=== PATIENT | female | born 1985 | race Caucasian/White ===

== ENCOUNTER 2019-01-27 08:51 | Emergency (ER) | payer SELFPAY ==
[~2019-01-27] VITALS: Ht 165.1 cm; Wt 77.1 kg
[2019-01-27 08:59] VITALS: BP 105/74
--- NOTE | 2019-01-27 09:16 | NUR ---
PT BIB FAMILY C/O ABDOMINAL PAIN AND VAGINAL BLEEDING SINCE YESTERDAY. INTERMITENT CRAMPING PAIN THAT RADIATES ACROSS LOWER ABD AT 6/10. ABD IS SOFT, NON-TENDER, BOWEL SOUNDS ACTIVE X4 QUADRANTS, LAST BM 01/26/19, PT DENIES N/V/D OR FEVER. PT REPORTS THAT SHE IS NO LONGER USING PADS TO CONTROL BLEEDING BECAUSE THERE IS TOO MUCH BLOOD, AND STATES THAT SHE IS USING PAPER TOWELS. PT STATED " I THINK I AM MISCARRIAGED." LMP 01/16/19 TO 01/21/19. VSS. RAZ VILLEDA TO SEE PT. MEDHX:DENIES RX:DENIES
--- NOTE | 2019-01-27 09:26 | NUR ---
PT PROVIDED SANITARY WIPES AND MAXI PAD, PT PROVIDING URINE SAMPLE AT THIS TIME.
[2019-01-27] MEDS ORDERED: KETOROLAC 30 MG/ML VIAL IM ONE (10:00)
[2019-01-27 10:46] LABS: BASOPHILS # (AUTO) 0.1 K/uL (0.00-0.22); BASOPHILS % (AUTO) 0.9 % (0.0-2.0); EOSINOPHILS # (AUTO) 0.1 K/uL (0-0.4); EOSINOPHILS % (AUTO) 1.2 % (0.0-4.0); HEMATOCRIT 36.4 % (36-48); HEMOGLOBIN 12.1 g/dL (12.0-16.0); LYMPHOCYTES # (AUTO) 1.7 K/uL (2.5-16.5); LYMPHOCYTES % (AUTO) 23.8 % (20.5-51.1); MEAN CORPUSCULAR HEMOGLOBIN 30 pg (27-31); MEAN CORPUSCULAR HGB CONC 33 g/dL (33-37); MEAN CORPUSCULAR VOLUME 88.6 fL (80-94); MONOCYTES # (AUTO) 0.3 K/uL (0.8-1.0); MONOCYTES % (AUTO) 4.4 % (1.7-9.3); NEUTROPHILS # (AUTO) 5.1 K/uL (1.8-7.7); NEUTROPHILS % (AUTO) 69.7 % (42.2-75.2); PLATELET COUNT (AUTO) 297 K/uL (140-450); RED BLOOD CELL COUNT(AUTO) 4.11 MIL/uL (4.20-5.40); RED CELL DISTRIBUTION WIDTH 13.5 % (11.6-13.7); WHITE BLOOD COUNT (AUTO) 7.3 K/uL (4.8-10.8)
[2019-01-27 10:52] LABS: ANION GAP 12.1 (8-16); CARBON DIOXIDE 29.1 mmol/L (21-32); CREATININE 0.6 mg/dL (0.6-1.3); POTASSIUM 4.2 mmol/L (3.5-5.1)
[2019-01-27 10:57] LABS: ALBUMIN 3.3 g/dL (3.4-5.0); TOTAL BILIRUBIN 0.3 mg/dL (0.0-1.0)
--- NOTE | 2019-01-27 11:01 | NUR ---
US AT BEDSIDE
[2019-01-27 11:26] LABS: APPEARANCE,URINE CLEAR (CLEAR); BILIRUBIN,URINE NEGATIVE (NEGATIVE); BLOOD, URINE 3+ (NEGATIVE); COLOR,URINE YELLOW (YELLOW); LEUKOCYTE ESTERASE ,URINE TRACE (NEGATIVE); NITRITE, URINE POSITIVE (NEGATIVE); UGLUCOSE NEGATIVE (NEGATIVE)
[2019-01-27 11:34] LABS: RBC,URINE TOO NUMEROUS TO COUN /HPF (0-5)
[2019-01-27 11:49] VITALS: BP 112/87
--- NOTE | 2019-01-27 12:00 | NUR ---
PT RESTING IN BED, FAMILY AT BEDSIDE. PT STATES THAT SHE HAS NO PAIN AT THIS TIME. STILL REOPRTS VAGINAL BLEEDING. PT DENIES DIZZINESS, WEAKNESS, CP, OR SOB. VSS.
--- NOTE | 2019-01-27 13:21 | NUR ---
Note gay in ED - 01/27/19 at 1322 by SANCHEZ WENT TO DISCHARGE; PT NOT FOUND IN BED. PT LEFT WITHOUT DISCHARGE PAPERWORK. RAZ VILLEDA NOTIFIED.
--- NOTE | 2019-01-27 13:21 | NUR ---
WENT TO DISCHARGE; PT NOT FOUND IN BED. PT LEFT WITHOUT DISCHARGE PAPERWORK. ER MD NOTIFIED.
== END 2019-01-27 13:21 | disposition home or self-care (01) ==
LOC: MED 08:51
DX: N93.8 Other specified abnormal uterine and vaginal bleeding (principal); N39.0 Urinary tract infection, site not specified; Z90.49 Acquired absence of other specified parts of digestive tract
CPT/HCPCS: 36415; 76856; 80053; 81001; 81025; 84702; 85025; 86900; 86901; 87086; 87186; 93976; 96372; 99284; J1885; Q0092

== ENCOUNTER 2019-09-05 19:48 | Emergency (ER) | payer MEDICAID ==
[~2019-09-05] VITALS: Ht 165.1 cm; Wt 90.3 kg
[2019-09-05 19:53] VITALS: BP 124/89
--- NOTE | 2019-09-05 19:57 | NUR ---
PT AMBULATED TO BED #12
--- NOTE | 2019-09-05 20:22 | NUR ---
PT BIB SELF C/O TOOTHPAIN X 1 WEEK, PT REPORTS BITTING DOWN AND FALLING, LANDING ON HER HEAD AND CHIPPING TEETH. PT HAS 2 DAMAGED TEETH ON LT AND RT SIDE OF LOWER MOUTH. NO EDEMA OR REDNESS VISIBLE. PT REPORTS 8/10 SHARP PAIN THAT RADIATES ACROSS WHOLE FACE. VSS. PT WENT TO EMERGENCY DENTIST, BUT WAS TOLD THEY COULD NOT DO ANYTHING UNTIL SHE HAS BEEN TX W/ ABX DUE TO INFECTION. PMH:DENIES
--- NOTE | 2019-09-05 20:52 | NUR ---
ODILIA HANCOCK AT BEDSIDE
[2019-09-05] MEDS ORDERED: ACETAMINOPHEN/CODEINE 300/30MG 1 TAB PO ONE (20:55)
[2019-09-05 21:40] VITALS: BP 149/100
--- NOTE | 2019-09-05 21:40 | NUR ---
Patient discharged with v/s stable. Written and verbal after care instructions given and explained. Patient alert, oriented and verbalized understanding of instructions. Ambulatory with steady gait. All questions addressed prior to discharge. ID band removed. Patient advised to follow up with PMD. Rx of IBUPROFEN, TYLENOL 3, AND AMOXICILLIN given. Patient educated on indication of medication including possible reaction and side effects. Opportunity to ask questions provided and answered.
== END 2019-09-05 21:40 | disposition home or self-care (01) ==
LOC: MED 19:48
DX: K02.9 Dental caries, unspecified (principal); F17.210 Nicotine dependence, cigarettes, uncomplicated; F12.10 Cannabis abuse, uncomplicated
CPT/HCPCS: 99283

== ENCOUNTER 2019-10-29 15:56 | Emergency (ER) | payer BC, MEDICAID ==
[~2019-10-29] VITALS: Ht 162.6 cm; Wt 92.5 kg
[2019-10-29 16:06] VITALS: BP 138/91
--- NOTE | 2019-10-29 16:09 | NUR ---
PT C/O LOWER LEFT TOOTHACHE 12/25 SEVERITY X 3 WEEKS. PT STATES PAIN WAS AGGRAVATED WHEN SHE WAS EATING LAST NIGHT AND SHE COULDNT CONTROL THE PAIN. WAS SEEN APPROX 3 WEEKS AGO FOR SAME S/S AND WAS DISCHARGED WITH AMOXICILLIN, IBUPROFEN AND TYLENOL. PT STATES PAIN WAS RELIVED BUT THAT SHE IS OUT OF PRESCRIPTION NOW AND PAIN IS WORSENING. PT ALERT AND AWAKE, AMBULATORY. VS STABLE.
[2019-10-29 16:24] VITALS: BP 138/91
--- NOTE | 2019-10-29 16:24 | NUR ---
Patient discharged with v/s stable. Written and verbal after care instructions given and explained. Patient alert, oriented and verbalized understanding of instructions. Ambulatory with steady gait. All questions addressed prior to discharge. ID band removed. Patient advised to follow up with PMD. Rx of naprosyn,norco, pcn given. Patient educated on indication of medication including possible reaction and side effects. Opportunity to ask questions provided and answered.
== END 2019-10-29 16:24 | disposition home or self-care (01) ==
LOC: MED 15:56
DX: K08.89 Other specified disorders of teeth and supporting structures (principal); F17.200 Nicotine dependence, unspecified, uncomplicated
CPT/HCPCS: 99283

== ENCOUNTER 2020-04-24 13:14 | Emergency (ER) | payer BC ==
[~2020-04-24] VITALS: Ht 165.1 cm; Wt 111.1 kg
[2020-04-24 13:21] VITALS: BP 132/89
[2020-04-24] MEDS ORDERED: MORPHINE SULFATE 4 MG/ML SYR IVP ONE ×2 (13:40→14:40)
[2020-04-24] MEDS ORDERED: ONDANSETRON 4 MG/2 ML VIAL IVP ONE (13:40)
[2020-04-24] MEDS ORDERED: cefTRIAXone 1,000 MG VIAL ONE (13:42)
[2020-04-24] MEDS ORDERED: BACITRACIN OINT 500 UNITS/GM PKT TP ONE ×2 (14:49→14:50)
[2020-04-24 14:56] VITALS: BP 128/84
== END 2020-04-24 14:54 | disposition home or self-care (01) ==
LOC: MED 13:14
DX: T81.30XA Disruption of wound, unspecified, initial encounter (principal); L03.115 Cellulitis of right lower limb; W20.8XXA Other cause of strike by thrown, projected or falling object, initial encounter; Y93.89 Activity, other specified; Y92.89 Other specified places as the place of occurrence of the external cause; Y99.8 Other external cause status
CPT/HCPCS: 73630; 96365; 96375; 99284; J0696; J2270; J2405; Q0092

== ENCOUNTER 2020-05-27 17:01 | Emergency (ER) | payer BC ==
[~2020-05-27] VITALS: Ht 165.1 cm; Wt 90.7 kg
[2020-05-27 17:08] VITALS: BP 140/65
[2020-05-27] MEDS ORDERED: ACETAMINOPHEN EXTRA STRENGTH 500 MG TAB PO ONE (17:20)
[2020-05-27 17:32] VITALS: BP 140/65
== END 2020-05-27 17:32 | disposition home or self-care (01) ==
LOC: MED 17:01
DX: K08.419 Partial loss of teeth due to trauma, unspecified class (principal); F17.210 Nicotine dependence, cigarettes, uncomplicated
CPT/HCPCS: 99283

== ENCOUNTER 2020-08-16 00:37 | Emergency (ER) | payer BC ==
[~2020-08-16] VITALS: Ht 165.1 cm; Wt 99.8 kg
[2020-08-16 00:45] VITALS: BP 145/101
--- NOTE | 2020-08-16 00:48 | NUR ---
ERMD AT BEDSIDE EVALUATING PATIENT.
--- NOTE | 2020-08-16 00:48 | NUR ---
Female Manager Utilization accompanied female patient for Pelvic Exam.
--- NOTE | 2020-08-16 01:00 | NUR ---
20G IV RT AC ESTABLISHED. BLOOD COLLECTED VIA IV START AND GIVEN TO REAL ESTATE EXECUTIVE ASSISTANT.
[2020-08-16] MEDS: NACL 0.9% 1,000 ML IV ONE (01:10)
[2020-08-16 01:13] LABS: BASOPHILS % (AUTO) 0.4 % (0.0-2.0); EOSINOPHILS # (AUTO) 0.1 K/uL (0-0.4); EOSINOPHILS % (AUTO) 1.1 % (0.0-4.0); HEMATOCRIT 37.4 % (36-48); HEMOGLOBIN 12.6 g/dL (12.0-16.0); LYMPHOCYTES # (AUTO) 2.6 K/uL (2.5-16.5); LYMPHOCYTES % (AUTO) 27.2 % (20.5-51.1); MEAN CORPUSCULAR HEMOGLOBIN 30 pg (27-31); MEAN CORPUSCULAR HGB CONC 34 g/dL (33-37); MEAN CORPUSCULAR VOLUME 88.2 fL (80-94); MONOCYTES # (AUTO) 0.5 K/uL (0.8-1.0); MONOCYTES % (AUTO) 5.5 % (1.7-9.3); NEUTROPHILS # (AUTO) 6.4 K/uL (1.8-7.7); NEUTROPHILS % (AUTO) 65.8 % (42.2-75.2); PLATELET COUNT (AUTO) 307 K/uL (140-450); RED BLOOD CELL COUNT(AUTO) 4.24 MIL/uL (4.20-5.40); RED CELL DISTRIBUTION WIDTH 13.9 % (11.6-13.7); WHITE BLOOD COUNT (AUTO) 9.7 K/uL (4.8-10.8)
--- NOTE | 2020-08-16 01:14 | NUR ---
35 Y/O FEMALE PATIENT BIB PARTNER VIA W/C ASSIST FOR C/O HEAVY CONTINUAL VAGINAL BLEEDING X 2 HOURS. PT STATES SHE IS 5 WEEKS . PT DENIES PAIN. MEDHX: DENIES NKA
--- NOTE | 2020-08-16 01:20 | NUR ---
PT PLACED ON BEDPAN Addendum: 08/16/20 at 0308 by [email or web address] NO URINE GIVEN AT THIS, [place] MADE AWARE
[2020-08-16 01:43] LABS: ANION GAP 13.7 (8-16); CARBON DIOXIDE 26.3 mmol/L (21-32)
[2020-08-16 01:44] LABS: CREATININE 0.6 mg/dL (0.6-1.3)
--- NOTE | 2020-08-16 01:47 | NUR ---
ULTRASOUND AT BEDSIDE.
--- NOTE | 2020-08-16 01:55 | NUR ---
THIS RN WAS FEMALE INTERNIST MEDICAL DOCTOR MD FOR COMPARATIVE SOCIOLOGY PROFESSOR
--- NOTE | 2020-08-16 02:11 | NUR ---
DURING ULTRASOUND EXAMINATION PT REQUESTED FROM TECH TO EXPLAIN RESULTS OF ULTRASOUND TO WHICH HE STATED "UNFORTUNATELY I CANT EXPLAINED THEM TO YOU". PT APPEARED VISIBLY UPSET AND AGITATED. PT THEN STATED "I'M UNCOMFORTABLE. I'M DONE. TAKE IT OUT." ULTRASOUND EXAMINATION CONCLUDED AT THIS TIME. ERMD MADE AWARE.
[2020-08-16 02:19] LABS: PROTHROMBIN TIME 9.7 secs (10.8-13.4)
--- NOTE | 2020-08-16 02:35 | NUR ---
DR BUENROSTRO AT BEDSIDE SPEAKING WITH PT
--- NOTE | 2020-08-16 02:37 | NUR ---
PT TALKING ON PHONE STATING "THEYRE NOT DOING ANYTHING. COME PICK ME UP". ATTEMPTED TO EXPLAIN TO PT THE PROCESS OF TESTING, PROCEDURES, AND POSSIBLE NEED FOR BLOOD TRANSFUSION. PT INGNORED THIS NURSE, PROCEEDED TO CONTINUE TO TALK ON THE PHONE. ERMD MADE AWARE.
--- NOTE | 2020-08-16 02:40 | NUR ---
PT IS AGITATED, STATING SHE WANTS TO LEAVE. PT PULLED OUT IV LINES.
[2020-08-16 02:42] VITALS: BP 145/101
--- NOTE | 2020-08-16 02:42 | NUR ---
Patient does not wish to proceed with medical care recommended by DR BUENROSTRO. Patient given information related to possible complications, up to and including , which could occur as a result of leaving hospital at this time. Patient verbalizes understanding of risks involved leaving against medical advice. Patient has signed AMA form.
== END 2020-08-16 02:42 | disposition left against medical advice (07) ==
LOC: MED 00:37
DX: O46.8X1 Other antepartum hemorrhage, first trimester (principal); Z3A.01 Less than 8 weeks gestation of pregnancy
CPT/HCPCS: 36415; 76817; 80048; 84702; 85025; 85610; 86886; 86900; 86901; 86920; 96360; 99284; J7030